=== PATIENT | female | born 1995 | race Caucasian/White ===

== ENCOUNTER 2018-07-05 21:24 | Emergency (ER) | payer OTHER ==
--- NOTE | 2018-07-05 21:37 | ER Report ---
History and Physical Time Seen By MD: 21:37 HPI/ROS CHIEF COMPLAINT: Left facial and no swelling HISTORY OF PRESENT ILLNESS: 22-year-old female was seen at urgent care 3 days ago with upper respiratory symptoms. She was told she has a sinus infection. She was given obstruction for benzoate cough suppressant. Patient has a p iercing in her left nostril. She notes left facial swelling over the last 24 hours. She's had some pain around her nose for 2 days. She's had upper respiratory symptoms for 4-5 days. She notes some low-grade fevers. She's had no chills. She's had no headache or photophobia. She denies stiff neck. He denies a history of asthma REVIEW OF SYSTEMS: Respiratory: No cough, no dyspnea. Cardiovascular: No chest pain, no palpitations. Gastrointestinal: No vomiting, no abdominal pain. Musculoskeletal: No back pain. Allergies: Coded Allergies: codeine (Verified Allergy, Intermediate, "violently ill, flu-like symtoms", 07/05/18) lactose (Verified Adverse Reaction, Unknown, 07/05/18) Home Meds Active Scripts Cefuroxime Axetil (CEFUROXIME) 500 Mg Tablet, 500 MG PO BID for infection, #14 TAB Prov:TROY VELAZCO DO 07/05/18 Reported Medications Montelukast Sodium (SINGULAIR) 10 Mg Tablet, 1 TAB PO QDAY, TAB 07/05/18 Albuterol Sulfate 90 Mcg/Act (PROAIR HFA 90 MCG/ACT) 8.5 Gm Hfa.aer.ad, 1-2 PUFF IH 3-4XD, INHALER 07/05/18 [ control] No Conflict Check 07/05/18 Reviewed Nurses Notes: Yes Old Medical Records Reviewed: Yes Constitutional Vital Sign - Last 24 Hours 07/05/18 07/05/18 07/05/18 07/05/18 21:36 21:37 21:39 22:00 Temp 99.4 Pulse 96 105 Resp 16 B/P (MAP) 139/103 139/103 (115) 119/91 (100) Pulse Ox 95 95 O2 Delivery Room Air 07/05/18 22:09 Pulse 97 Pulse Ox 95 Physical Exam Vital signs stable, low-grade fever 99 4, pulse ox normal General Appearance: The patient is alert, has no immediate need for airway protection and no current signs of toxicity. Mild distress HEENT: Pupils equal and round no injection. TMs normal, TMJs nontender, examination of the left face reveals mild soft tissue swelling and erythema to the left alar. There is a piercing in the left nares. There is gross erythema and edema of the nasal passages with purulent discharge. Oropharynx with moderate erythema, no exudate or petechiae Respiratory: Chest is non tender, lungs are clear to auscultation. No wheezing or rails Cardiac: regular rate and rhythm Gastrointestinal: Abdomen is soft and non tender, no masses, bowel sounds normal. Musculoskeletal: Neck: Neck is supple and non tender. No lymphadenopathy, no meningismus Extremities have full range of motion and are non tender. Skin: No rashes or lesions. DIFFERENTIAL DIAGNOSIS: After history and physical exam differential diagnosis was considered for tooth abscess, sinusitis, bronchitis, pneumonia, otitis media, pharyngitis, cellulitis Medical Decision Making ED Course/Re-evaluation ED Course Patient was admitted to an examination room. H&P was done. The differential diagnoses was considered. On clinical examination. Patient has swelling and redness to the left alar of her nose and left maxillary facial area. There is mild erythema and warmth. Patient's had upper respiratory infection. His blowing her nose a lot. Patient is a low-grade fever. She'll be treated for sinusitis with Ceftin which should cover for cellulitis of the facial tissues. Patient is advised warm compresses to her face. Patient's advised to take. We will morning and afternoon NyQuil at bedtime. She is advised ibuprofen 600 mg per day. She's given a prescription for Ceftin 500 mg twice a day for one week. Patient advised to follow-up with primary care or urgent care if unimproved in 3-5 days. Decision to Disposition Date: Jul 05, 2018 Decision to Disposition Time: 21:49 Depart Departure Latest Vital Signs Vital Signs Date Time Temp Pulse Resp B/P (MAP) Pulse Ox O2 Delivery O2 Flow Rate FiO2 07/05/18 22:09 97 95 07/05/18 22:00 119/91 (100) 07/05/18 21:36 99.4 16 Room Air Impression: Primary Impression: Sinus infection Additional Impression: Left facial swelling Condition: Improved Disposition: HOME OR SELF-CARE New Scripts Cefuroxime Axetil (CEFUROXIME) 500 Mg Tablet 500 MG PO BID for infection, #14 TAB Prov: TROY VELAZCO DO 07/05/18 Patient Instructions: Sinusitis (ED) Additional Instructions: Take DayQuil morning and afternoon, NyQuil at bedtime Take ibuprofen 200 mg 3 tablets 3 times daily with food for inflammatory pain relief Apply warm compresses to your left cheek Take Ceftin antibiotic twice daily until gone Hollow up with primary care if unimproved in 3-5 days Problem Qualifiers Primary Impression: Sinus infection Sinusitis location: maxillary Chronicity: acute Recurrence: not specified as recurrent Qualified Codes: J01.00 - Acute maxillary sinusitis, unspecified TROY VELAZCO DO Jul 05, 2018 21:37
[2018-07-05] MEDS ORDERED: birth control (21:41)
[2018-07-05] MEDS ORDERED: ALBU8.5H IH (21:42)
[2018-07-05] MEDS ORDERED: MONT10TA PO (21:42)
[2018-07-05] MEDS ORDERED: CEFUROXIME AXETIL 250 MG TAB PO ONE (21:50)
[2018-07-05] MEDS ORDERED: CEFU500T10 PO (21:51)
[2018-07-05 22:00] VITALS: BP 119/91
== END 2018-07-05 22:18 | disposition home or self-care (01) ==
LOC: ER 21:48
DX: J01.00 Acute maxillary sinusitis, unspecified (principal); L03.211 Cellulitis of face; M79.89 Other specified soft tissue disorders
CPT/HCPCS: 99283